=== PATIENT | female | born 1990 | race Caucasian/White ===

== ENCOUNTER 2017-04-24 14:14 | Emergency (ER) | payer SELFPAY ==
[~2017-04-24] VITALS: Ht 162.6 cm; Wt 93.4 kg
[2017-04-24 15:39] LABS: HEMATOCRIT 40.4 % (36.0-46.0); MCH 29.6 PG (29.0-34.0); MCHC 34.2 G/DL (30.0-36.0); MCV 86.7 FL (83-99); MEAN PLAT.VOLUME 9.7 uM^3 (9.5-12.4); PLATELET COUNT 298 K/uL (156-360); RBC DIS.WIDTH-CV 12.5 % (11.8-14.6); RBC DIS.WIDTH-SD 39.3 % (39-53); RED BLOOD COUNT 4.66 M/uL (3.80-5.20); WHITE BLOOD COUNT 11.5 K/uL (4.1-10.2)
[2017-04-24 15:43] LABS: ADD MIUA? NO; BILIRUBIN NEGATIVE; BLOOD NEGATIVE; COLOR STRAW ((YELLOW)); GLUCOSE (STRIP) NEGATIVE; KETONES NEGATIVE; LEUKOCYTES NEGATIVE; NITRITE NEGATIVE; PROTEIN (STRIP) NEGATIVE; SPECIFIC GRAVITY 1.013 (1.000-1.030); UROBILINOGEN 0.2 MG/DL (0.2-1.0)
[2017-04-24 15:48] LABS: CHLORIDE 108 mEq/L (99-109); POTASSIUM 3.8 mEq/L (3.7-5.4); SODIUM 140 mEq/L (136-147)
[2017-04-24 15:50] LABS: GLUCOSE 91 mg/dL (70-99)
[2017-04-24 15:52] LABS: ANION GAP 12 MEQ/L (2-14); TOTAL BILIRUBIN 0.2 mg/dL (0.0-1.0)
[2017-04-24 15:54] LABS: ALKALINE PHOSPHATASE 72 IU/L (3-129); GFR ESTIMATE (CALCULATED) > 59 mL/min/
[2017-04-24 15:55] LABS: LIPASE 15 U/L (1.0-51.0); UREA NITROGEN (BUN) 7 mg/dL (9-23)
[2017-04-24 16:03] LABS: QUANTITATIVE HCG < 4.0 MIU/ML
[2017-04-24] MEDS ORDERED: BENTYL20 MG PO (17:31)
[2017-04-24 17:54] VITALS: BP 121/86
== END 2017-04-24 17:54 | disposition home or self-care (01) ==
LOC: EME 14:14
PROVIDERS: Physician Assistant
DX: R10.9 Unspecified abdominal pain (principal); Z87.442 Personal history of urinary calculi
CPT/HCPCS: 74020; 80048; 80053; 81003; 83690; 84702; 85027; 99281; 99283